=== PATIENT | female | born 1950 | race Caucasian/White ===

== ENCOUNTER 2019-02-23 20:38 | Emergency (ER) | payer MEDICARE ==
[~2019-02-23] VITALS: Ht 167.6 cm; Wt 67.1 kg
--- NOTE | 2019-02-23 22:08 | NUR ---
ERMD at bedside for MSE and procedure.
[2019-02-23] MEDS ORDERED: LIDOCAINE HCL 1% 20 ML VIAL IJ ONE (22:15)
--- NOTE | 2019-02-23 22:50 | NUR ---
Patient discharged to home in stable conditon. Written and verbal after care instructions given. Patient verbalizes understanding of instructions. Patient ambulated with stable gait.
[2019-02-23 22:51] VITALS: BP 131/78
== END 2019-02-23 22:51 | disposition home or self-care (01) ==
LOC: ER 20:40
DX: S61.211A Laceration without foreign body of left index finger without damage to nail, initial encounter (principal); S61.012A Laceration without foreign body of left thumb without damage to nail, initial encounter; J45.909 Unspecified asthma, uncomplicated; E03.9 Hypothyroidism, unspecified; Z88.2 Allergy status to sulfonamides; W26.0XXA Contact with knife, initial encounter; Y93.89 Activity, other specified; Y92.89 Other specified places as the place of occurrence of the external cause; Y99.8 Other external cause status
CPT/HCPCS: 12001; 99284; J3490; A4217; A4663